=== PATIENT | male | born 1955 | race African-American/Black ===

== ENCOUNTER 2016-12-11 16:32 | Inpatient (IN) | payer SELFPAY ==
[2016-12-11 19:50] VITALS: BMI 26.0
--- NOTE | 2016-12-11 20:34 | HP ---
COWS - Scale Resting Pulse: 1= [place] 81-100 Sweatin=Flushed/Facial Moisture Restless Observation: 1= Difficult to Sit Still Pupil Size: 1= Pupils >than Normal Bone or Joint Aches: 1= Mild Discomfort Runny Nose/ Eye Tearin= Runny Nose/Eyes GI Upset > 30mins: 1= Stomach Cramp Tremor Observation: 1= Tremor [place], Not Seen Yawning Observation: 1= 1-2x During Session Anxiety or Irritability: 1=Feels Anxious/Irritable Goose Flesh Skin: 0=Smooth Skin COWS Score: 12 Admission ROS S - HPI Chief Complaint: WITHDRAWAL SYMPTOMS Allergies/Adverse Reactions: Allergies Allergy/AdvReac Type Severity Reaction Status Date / Time No Known Allergies Allergy Verified 12/11/16 20:32 History of Present Illness: 60 Y.O. MAN WITH AN EXTENSIVE HISTORY OF OPIATE AND COCAINE DEPENDENCE IS HERE SEEKING DETOX. HE WAS CLEAN FOR 7 YEARS BUT RELAPSED IN 2016. Exam Limitations: Physical Impairment (AMBULATES WITH A CANE AFTER A FALL. INSURED RIGHT KNEE.) - Ebola screening Have you traveled outside of the country in the last 21 days: No Have you had contact with anyone from an Ebola affected area: No Have you been sick,other than usual withdrawal symptoms: No Do you have a fever: No - Review of Systems Constitutional: Chills, Night Sweats, Changes in sleep, Weight Stable EENT: reports: Tearing, Nose Congestion Respiratory: reports: No Symptoms reported Cardiac: reports: No Symptoms Reported GI: reports: No Symptoms Reported : reports: No Symptoms Reported Musculoskeletal: reports: Joint Pain (RIGHT KNEE) Integumentary: reports: No Symptoms Reported Neuro: reports: Unsteady Gait Endocrine: reports: No Symptoms Reported Hematology: reports: No Symptoms Reported Psychiatric: reports: Mood/Affect Appropiate, Orientated x3 Other Systems: Reviewed and Negative Patient History - Patient Medical History Hx Anemia: No Hx Asthma: No Hx Chronic Obstructive Pulmonary Disease (COPD): No Hx Cancer: No Hx Cardiac Disorders: No Hx Congestive Heart Failure: No Hx Hypertension: No Hx Hypercholesterolemia: No Hx Pacemaker: No HX Cerebrovascular Accident: No Hx Seizures: No Hx Dementia: No Hx Diabetes: No Hx Gastrointestinal Disorders: No Hx Liver Disease: No Hx Genitourinary Disorders: No Hx Sexually Transmitted Disorders: No Hx Renal Disease (ESRD): No Hx Thyroid Disease: No Hx Human Immunodeficiency Virus (HIV): No Hx Hepatitis C: No Hx Depression: No Hx Suicide Attempt: No Hx Bipolar Disorder: No Hx Schizophrenia: No - Patient Surgical History Past Surgical History: Yes Hx Orthopedic Surgery: Yes (R KNEE ) Anesthesia Reaction: No - PPD History Previous Implant?: Yes Documented Results: Negative w/o proof PPD to be Administered?: Yes - Reproductive History Patient is a Female of Child Bearing Age (11 -55 yrs old): No - Smoking Cessation Smoking history: Current every day smoker Have you smoked in the past 12 months: Yes Aproximately how many cigarettes per day: 8 Hx Chewing Tobacco Use: No Initiated information on smoking cessation: Yes 'Breaking Loose' booklet given: 12/11/16 - Substance & Tx. History Hx Alcohol Use: No Hx Substance Use: Yes Substance Use Type: Heroin, Opiates Hx Substance Use Treatment: Yes (DETOX ) - Substances Abused Heroin Route: Inhalation Frequency: Daily Amount used: 6-10 BAGS Age of first use: 45 Date of Last Use: 12/11/16 Oxycontin Route: Oral Frequency: Daily Amount used: 80MG Age of first use: 50 Date of Last Use: 12/11/16 Family Disease History - Family Disease History Family Disease History: CA: Father (THROAT CA- ), Mother ( ) Admission Physical Exam S - Vital Signs Vital Signs: Vital Signs - 24 hr 12/11/16 19:48 Temperature 97.8 F Pulse Rate 92 H Respiratory 20 Rate Blood Pressure 106/80 - Physical General Appearance: Yes: Disheveled HEENTM: Yes: Rhinorrhea Respiratory: Yes: Chest Non-Tender, Lungs Clear, Normal Breath Sounds, No Respiratory Distress, No Accessory Muscle Use Neck: Yes: No masses,lesions,Nodules, Trachea in good position Breast: Yes: Breast Exam Deferred Cardiology: Yes: Regular Rhythm, Regular Rate Abdominal: Yes: Non Tender, Flat, Soft Genitourinary: Yes: Other (NO COMPLAINTS REPORTED) Back: Yes: Normal Inspection Musculoskeletal: Yes: Joint Stiffness (RIGHT KNEE) Extremities: Yes: Normal Inspection, Normal Range of Motion, Non-Tender Neurological: Yes: geodesist II-XII NML intact, Fully Oriented, Alert, Normal Mood/ Affect, Normal Response Integumentary: Yes: Normal Color, Dry, Warm Lymphatic: Yes: Within Normal Limits - Diagnostic (1) Opioid dependence with withdrawal Current Visit: Yes Status: Chronic (2) Nicotine dependence Current Visit: Yes Status: Chronic BHS Breath Alcohol Content Breath Alcohol Content: 0 Urine Drug Screen - Results Drug Screen Negative: No Urine Drug Screen Results: THC-Marijuana, MANPREET-Cocaine, OPI-Opiates, OXY- Oxycodone
[2016-12-11] MEDS ORDERED: LOPERAMIDE HCL 2 MG CAPSULE PO PRN (20:48)
[2016-12-11] MEDS ORDERED: IBUPROFEN 400 MG TABLET (FP) PO PRN (20:48)
[2016-12-11] MEDS ORDERED: guaiFENesin/D-METHORPHAN HB 10 ML UNIT-DOSE CUPS PO PRN (20:48)
[2016-12-11] MEDS ORDERED: NICOTINE POLACRILEX 2 MG GUM BC PRN (20:48)
[2016-12-11] MEDS ORDERED: MAGNESIUM HYDROX 2400MG/30ML ORAL SUSPENSION 30 ML CUP PO PRN (20:48)
[2016-12-11] MEDS ORDERED: MAG HYDROX/AL HYDROX/SIMETH 30 ML UNIT-DOSE CUP PO PRN (20:48)
[2016-12-11] MEDS ORDERED: MAGNESIUM CITRATE 300 ML BOTTLE PO PRN (20:48)
[2016-12-11] MEDS ORDERED: ACETAMINOPHEN 325 MG TABLET (FP) PO PRN (20:48)
[2016-12-11] MEDS ORDERED: P-EPHED 60MG/TRIPROLIDI 2.5MG TABLET PO PRN (20:48)
[2016-12-11] MEDS ORDERED: MENTHOL/PHENOL 1 EACH UD MM PRN (20:48)
[2016-12-11] MEDS ORDERED: METHADONE HCL 10 MG TABLET (FOR DETOX USE ONLY) PO ONE ×2 (20:48→23:00)
[2016-12-11] MEDS: diazePAM 5 MG TABLET PO PRN (22:57)
[2016-12-11] MEDS: THIAMINE HCL 100 MG TABLET (FP) PO SCH (22:58)
[2016-12-11] MEDS: diphenhydrAMINE HCL 50 MG CAPSULE PO PRN (22:58)
[2016-12-11 23:28] LABS: URINE APPEARANCE CLEAR; URINE BILIRUBIN NEGATIVE (NEGATIVE); URINE BLOOD NEGATIVE (NEGATIVE); URINE COLOR YELLOW; URINE GLUCOSE (UA) NEGATIVE (NEGATIVE); URINE KETONE TRACE (NEGATIVE); URINE LEUK ESTERASE NEGATIVE (NEGATIVE); URINE NITRITE NEGATIVE (NEGATIVE); URINE UROBILINOGEN 2.0 E.U/dl E.U./dl (0.2-1.0)
[2016-12-11 23:45] LABS: URINE PROTEIN 1+ (NEGATIVE)
[2016-12-11 23:48] LABS: CALCIUM OXALATE CRYSTALS FEW /hpf (NONE SEEN); URINE BACTERIA RARE /hpf (NONE SEEN); URINE MUCUS FEW; URINE RBC 4 /hpf (0-3); URINE WBC <1 /hpf (3-5)
--- NOTE | 2016-12-12 09:56 | CONSULT ---
[facility] Psychiatric Consult - Data Date of interview: 12/12/16 Admission source: [facility] Identifying data: Mr Ortiz is a 60 years old single Black male, father of 4 children, employed in maintenance by a [employer], domiciled seeking detox treatment for heroin and oxycontin Substance Abuse History: Reports that he started using heroin at age 45 and oxycontin at 60. He consumes 6-10 bags of heroin & 80 mg of oxycontin daily. He last used both on 12/11/16 Medical History: Significant for history of orthosurgery for repair of ligamen in right knee. smoked 8 cigarettes daily Psychiatric History: Denies history of previous psychiatric treatment Physical/Sexual Abuse/Trauma History: Denies history of emotional, physical or sexual abuse as well as Dv relationship Additional Comment: Reports a few arrests for disorderly conduct Mental Status Exam - Mental Status Exam Alert and Oriented to: Time, Place, Person Cognitive Function: Fair Patient Appearance: Well Groomed Mood: Depressed Patient Behavior: Cooperative Speech Pattern: Clear Voice Loudness: Normal Thought Process: Intact Thought Disorder: Not Present Hallucinations: Denies Suicidal Ideation: Denies Homicidal Ideation: Denies Insight/Judgement: Fair Sleep: Fair Appetite: Fair Muscle strength/Tone: Normal Gait/Station: Normal Psychiatric Findings - Problem List ([place] 1, 2,3) (1) Substance induced mood disorder Current Visit: Yes Status: Acute (2) Opioid dependence with withdrawal Current Visit: Yes Status: Chronic (3) Nicotine dependence Current Visit: Yes Status: Chronic - Initial Treatment Plan Initial Treatment Plan: Continue inpatient detoxification
[2016-12-12] MEDS ORDERED: METHADONE HCL 10 MG TABLET (FOR DETOX USE ONLY) PO ONE (10:00)
[2016-12-12 10:11] LABS: MCH 29.5 pg (25.7-33.7); MCHC 33.3 g/dl (32.0-35.9); MEAN CELL VOLUME 88.4 fl (80-96); MEAN PLT VOLUME 7.7 fl (7.5-11.1); PLATELET COUNT 230 K/MM3 (134-434); RDW 13.5 % (11.9-15.9); WHITE BLOOD COUNT 5.6 K/mm3 (4.0-10.0)
[2016-12-12] MEDS: diazePAM 5 MG TABLET PO PRN ×2 (10:15→22:10)
[2016-12-12] MEDS: PRENATAL VITAMINS W/ FOLIC ACID TABLET (FP) PO SCH (10:15)
[2016-12-12 11:26] LABS: ALBUMIN 3.6 g/dl (3.4-5.0); ALK PHOS 88 U/L (45-117); ANION GAP 9 (8-16); BILIRUBIN,TOTAL 0.4 mg/dL (0.2-1.0); CALCIUM 9.4 mg/dL (8.5-10.1); CO2 28 mmol/L (21-32); COCKROFT - GAULT 104.71; CREATININE 0.9 mg/dL (0.7-1.3); GLUCOSE,RANDOM 93 mg/dL (74-106); SGOT/AST 25 U/L (15-37); SGPT/ALT 43 U/L (12-78); TOT PROT 7.1 g/dl (6.4-8.2)
--- NOTE | 2016-12-12 11:47 | PN ---
S COWS - Scale Resting Pulse: 1= [place] 81-100 Sweatin=Flushed/Facial Moisture Restless Observation: 0= Sits Still Pupil Size: 0= Normal to Room Light Bone or Joint Aches: 2= Severe Diffuse Aches Runny Nose/ Eye Tearin= Nasal Congestion GI Upset > 30mins: 1= Stomach Cramp Tremor Observation of Outstretched Hands: 2= Slight Tremor Visible Yawning Observation: 1= 1-2x During Session Anxiety or Irritability: 2=Irritable/Anxious Goose Flesh Skin: 3=Piloerection COWS Score: 15 S Progress Note (SOAP) Subjective: Body Aches, Interrupted Sleep, Hot / Cold Sensations. Objective: PT. A & O X 3. NO ACUTE DISTRESS. PT. DENIES CHEST PAIN. 12/12/16 11:46 Vital Signs Temperature 97.3 F L 12/12/16 09:30 Pulse Rate 96 H 12/12/16 09:30 Respiratory Rate 18 12/12/16 09:30 Blood Pressure 137/80 12/12/16 09:30 O2 Sat by Pulse Oximetry (%) Laboratory Tests 12/11/16 12/12/16 12/12/16 Unknown 07:00 07:00 WBC 5.6 RBC 4.37 Hgb 12.9 Hct 38.6 MCV 88.4 MCHC 33.3 RDW 13.5 Plt Count 230 MPV 7.7 Sodium 140 Potassium 4.4 Chloride 103 Carbon Dioxide 28 Anion Gap 9 BUN 16 Creatinine 0.9 Creat Clearance w eGFR > 60 Random Glucose 93 Calcium 9.4 Total Bilirubin 0.4 AST 25 ALT 43 Alkaline Phosphatase 88 Total Protein 7.1 Albumin 3.6 Urine Color Yellow Urine Appearance Clear Urine pH 5.0 Urine Protein 1+ H Urine Glucose (UA) Negative Urine Ketones Trace H Urine Blood Negative Urine Nitrite Negative Urine Bilirubin Negative Urine Urobilinogen 2.0 e.u/dl Ur Leukocyte Esterase Negative Urine RBC 4 Urine WBC <1 Ur Epithelial Cells Rare Calcium Oxalate Crystal Few Urine Bacteria Rare Urine Mucus Few RPR Titer 12/12/16 07:00 WBC RBC Hgb Hct MCV MCHC RDW Plt Count MPV Sodium Potassium Chloride Carbon Dioxide Anion Gap BUN Creatinine Creat Clearance w eGFR Random Glucose Calcium Total Bilirubin AST ALT Alkaline Phosphatase Total Protein Albumin Urine Color Urine Appearance Urine pH Urine Protein Urine Glucose (UA) Urine Ketones Urine Blood Urine Nitrite Urine Bilirubin Urine Urobilinogen Ur Leukocyte Esterase Urine RBC Urine WBC Ur Epithelial Cells Calcium Oxalate Crystal Urine Bacteria Urine Mucus RPR Titer Nonreactive LABS NOTED. Assessment: 12/12/16 11:47 WITHDRAWAL SYMPTOMS. Plan: CONTINUE DETOX.
--- NOTE | 2016-12-12 11:57 | EKG ---
Test Reason : Blood Pressure : / mmHG Vent. Rate : 094 BPM Atrial Rate : 094 BPM P-R Int : 128 ms QRS Dur : 098 ms QT Int : 348 ms P-R-T Axes : 079 040 039 degrees QTc Int : 435 ms NORMAL SINUS RHYTHM RIGHT ATRIAL ENLARGEMENT INCOMPLETE RIGHT BUNDLE BRANCH BLOCK BORDERLINE ECG NO PREVIOUS ECGS AVAILABLE Confirmed by SANG COTA, EM ([id number] on 12/12/2016 11:56:56 AM Referred By: Confirmed By:EM DOMÍNGUEZ MD
[2016-12-12] MEDS: THIAMINE HCL 100 MG TABLET (FP) PO SCH (22:07)
[2016-12-12] MEDS: diphenhydrAMINE HCL 50 MG CAPSULE PO PRN (22:10)
[2016-12-13] MEDS: diazePAM 5 MG TABLET PO PRN ×4 (05:37→22:02)
[2016-12-13] MEDS ORDERED: METHADONE HCL 5 MG TABLET (FOR DETOX USE ONLY) PO ONE (10:00)
[2016-12-13] MEDS: PRENATAL VITAMINS W/ FOLIC ACID TABLET (FP) PO SCH (10:01)
--- NOTE | 2016-12-13 11:48 | PN ---
BHS COWS - Scale Resting Pulse: 1= [place] 81-100 Sweatin=Flushed/Facial Moisture Restless Observation: 0= Sits Still Pupil Size: 0= Normal to Room Light Bone or Joint Aches: 2= Severe Diffuse Aches Runny Nose/ Eye Tearin= Nasal Congestion GI Upset > 30mins: 1= Stomach Cramp Tremor Observation of Outstretched Hands: 2= Slight Tremor Visible Yawning Observation: 2= >3x During Session Anxiety or Irritability: 2=Irritable/Anxious Goose Flesh Skin: 0=Smooth Skin COWS Score: 13 BHS Progress Note (SOAP) Subjective: Chills, Sweating, Interrupted Sleep. Objective: PT. A & O X 3, OBSERVED AMBULATING ON UNIT WITH ASSISTANCE OF A CANE. NO ACUTE DISTRESS. PT. DENIES CHEST PAIN. 12/13/16 11:44 Vital Signs Temperature 97.6 F 12/13/16 10:01 Pulse Rate 97 H 12/13/16 10:01 Respiratory Rate 18 12/13/16 10:01 Blood Pressure 131/92 12/13/16 10:01 O2 Sat by Pulse Oximetry (%) Laboratory Tests 12/11/16 12/12/16 12/12/16 Unknown 07:00 07:00 WBC 5.6 RBC 4.37 Hgb 12.9 Hct 38.6 MCV 88.4 MCHC 33.3 RDW 13.5 Plt Count 230 MPV 7.7 Sodium 140 Potassium 4.4 Chloride 103 Carbon Dioxide 28 Anion Gap 9 BUN 16 Creatinine 0.9 Creat Clearance w eGFR > 60 Random Glucose 93 Calcium 9.4 Total Bilirubin 0.4 AST 25 ALT 43 Alkaline Phosphatase 88 Total Protein 7.1 Albumin 3.6 Urine Color Yellow Urine Appearance Clear Urine pH 5.0 Ur Specific [place] >= 1.030 H Urine Protein 1+ H Urine Glucose (UA) Negative Urine Ketones Trace H Urine Blood Negative Urine Nitrite Negative Urine Bilirubin Negative Urine Urobilinogen 2.0 e.u/dl Ur Leukocyte Esterase Negative Urine RBC 4 Urine WBC <1 Ur Epithelial Cells Rare Calcium Oxalate Crystal Few Urine Bacteria Rare Urine Mucus Few RPR Titer 12/12/16 07:00 WBC RBC Hgb Hct MCV MCHC RDW Plt Count MPV Sodium Potassium Chloride Carbon Dioxide Anion Gap BUN Creatinine Creat Clearance w eGFR Random Glucose Calcium Total Bilirubin AST ALT Alkaline Phosphatase Total Protein Albumin Urine Color Urine Appearance Urine pH Ur Specific [place] Urine Protein Urine Glucose (UA) Urine Ketones Urine Blood Urine Nitrite Urine Bilirubin Urine Urobilinogen Ur Leukocyte Esterase Urine RBC Urine WBC Ur Epithelial Cells Calcium Oxalate Crystal Urine Bacteria Urine Mucus RPR Titer Nonreactive LABS NOTED. Assessment: 12/13/16 11:47 WITHDRAWAL SYMPTOMS. Plan: CONTINUE DETOX. CONTINUE TO MONITOR BP.
[2016-12-13] MEDS: THIAMINE HCL 100 MG TABLET (FP) PO SCH (22:02)
[2016-12-13] MEDS: diphenhydrAMINE HCL 50 MG CAPSULE PO PRN (22:03)
[2016-12-14] MEDS: diphenhydrAMINE HCL 50 MG CAPSULE PO PRN ×2 (01:20→22:02)
[2016-12-14] MEDS: diazePAM 5 MG TABLET PO PRN ×3 (05:42→18:06)
[2016-12-14] MEDS ORDERED: METHADONE HCL 5 MG TABLET (FOR DETOX USE ONLY) PO ONE (10:00)
[2016-12-14] MEDS: PRENATAL VITAMINS W/ FOLIC ACID TABLET (FP) PO SCH (10:07)
--- NOTE | 2016-12-14 11:13 | PN ---
BHS Progress Note (SOAP) Subjective: Interrupted sleep, Body Aches, Tremors, Sweating. Objective: PT. A & OX 2 (DISORIENTED ABOUT ABOUT DAY / DATE). PT. OBSERVED AMBULATING ON UNIT WITH ASSISTANCE OF A CANE. NO Acute distress. 12/14/16 11:10 Vital Signs Temperature 96.4 F L 12/14/16 10:00 Pulse Rate 103 H 12/14/16 10:00 Respiratory Rate 18 12/14/16 10:00 Blood Pressure 129/84 12/14/16 10:00 O2 Sat by Pulse Oximetry (%) Laboratory Tests 12/11/16 12/12/16 12/12/16 Unknown 07:00 07:00 WBC 5.6 RBC 4.37 Hgb 12.9 Hct 38.6 MCV 88.4 MCHC 33.3 RDW 13.5 Plt Count 230 MPV 7.7 Sodium 140 Potassium 4.4 Chloride 103 Carbon Dioxide 28 Anion Gap 9 BUN 16 Creatinine 0.9 Creat Clearance w eGFR > 60 Random Glucose 93 Calcium 9.4 Total Bilirubin 0.4 AST 25 ALT 43 Alkaline Phosphatase 88 Total Protein 7.1 Albumin 3.6 Urine Color Yellow Urine Appearance Clear Urine pH 5.0 Ur Specific [place] >= 1.030 H Urine Protein 1+ H Urine Glucose (UA) Negative Urine Ketones Trace H Urine Blood Negative Urine Nitrite Negative Urine Bilirubin Negative Urine Urobilinogen 2.0 e.u/dl Ur Leukocyte Esterase Negative Urine RBC 4 Urine WBC <1 Ur Epithelial Cells Rare Calcium Oxalate Crystal Few Urine Bacteria Rare Urine Mucus Few RPR Titer 12/12/16 07:00 WBC RBC Hgb Hct MCV MCHC RDW Plt Count MPV Sodium Potassium Chloride Carbon Dioxide Anion Gap BUN Creatinine Creat Clearance w eGFR Random Glucose Calcium Total Bilirubin AST ALT Alkaline Phosphatase Total Protein Albumin Urine Color Urine Appearance Urine pH Ur Specific [place] Urine Protein Urine Glucose (UA) Urine Ketones Urine Blood Urine Nitrite Urine Bilirubin Urine Urobilinogen Ur Leukocyte Esterase Urine RBC Urine WBC Ur Epithelial Cells Calcium Oxalate Crystal Urine Bacteria Urine Mucus RPR Titer Nonreactive LABS NOTED. Assessment: 12/14/16 11:12 WITHDRAWAL SYMPTOMS. Plan: CONTINUE DETOX.
[2016-12-14] MEDS: THIAMINE HCL 100 MG TABLET (FP) PO SCH (22:02)
[2016-12-15] MEDS: hydrOXYzine PAMOATE 50 MG CAPSULE (FP) PO PRN ×3 (05:42→22:05)
[2016-12-15] MEDS ORDERED: METHADONE HCL 10 MG TABLET (FOR DETOX USE ONLY) PO ONE (10:00)
[2016-12-15] MEDS: PRENATAL VITAMINS W/ FOLIC ACID TABLET (FP) PO SCH (10:08)
--- NOTE | 2016-12-15 10:55 | PN ---
BHS Progress Note (SOAP) Subjective: Interrupted sleep, Chills, Tremors, Body Aches. Objective: PT. A & O X 3, OBSERVED AMBULATING ON UNIT WITH ASSISTANCE OF A CANE. NO ACUTE DISTRESS. PT. DENIES CHEST PAIN. 12/15/16 10:53 Vital Signs Temperature 96.4 F L 12/15/16 09:55 Pulse Rate 93 H 12/15/16 09:55 Respiratory Rate 20 12/15/16 09:55 Blood Pressure 122/86 12/15/16 09:55 O2 Sat by Pulse Oximetry (%) Laboratory Tests 12/11/16 12/12/16 12/12/16 Unknown 07:00 07:00 WBC 5.6 RBC 4.37 Hgb 12.9 Hct 38.6 MCV 88.4 MCHC 33.3 RDW 13.5 Plt Count 230 MPV 7.7 Sodium 140 Potassium 4.4 Chloride 103 Carbon Dioxide 28 Anion Gap 9 BUN 16 Creatinine 0.9 Creat Clearance w eGFR > 60 Random Glucose 93 Calcium 9.4 Total Bilirubin 0.4 AST 25 ALT 43 Alkaline Phosphatase 88 Total Protein 7.1 Albumin 3.6 Urine Color Yellow Urine Appearance Clear Urine pH 5.0 Ur Specific [place] >= 1.030 H Urine Protein 1+ H Urine Glucose (UA) Negative Urine Ketones Trace H Urine Blood Negative Urine Nitrite Negative Urine Bilirubin Negative Urine Urobilinogen 2.0 e.u/dl Ur Leukocyte Esterase Negative Urine RBC 4 Urine WBC <1 Ur Epithelial Cells Rare Calcium Oxalate Crystal Few Urine Bacteria Rare Urine Mucus Few RPR Titer 12/12/16 07:00 WBC RBC Hgb Hct MCV MCHC RDW Plt Count MPV Sodium Potassium Chloride Carbon Dioxide Anion Gap BUN Creatinine Creat Clearance w eGFR Random Glucose Calcium Total Bilirubin AST ALT Alkaline Phosphatase Total Protein Albumin Urine Color Urine Appearance Urine pH Ur Specific [place] Urine Protein Urine Glucose (UA) Urine Ketones Urine Blood Urine Nitrite Urine Bilirubin Urine Urobilinogen Ur Leukocyte Esterase Urine RBC Urine WBC Ur Epithelial Cells Calcium Oxalate Crystal Urine Bacteria Urine Mucus RPR Titer Nonreactive LABS NOTED. Assessment: 12/15/16 10:54 WITHDRAWAL SYMPTOMS. Plan: CONTINUE DETOX.
[2016-12-15] MEDS: THIAMINE HCL 100 MG TABLET (FP) PO SCH (22:05)
[2016-12-15] MEDS: diphenhydrAMINE HCL 50 MG CAPSULE PO PRN (22:05)
[2016-12-16] MEDS ORDERED: METHADONE HCL 5 MG TABLET (FOR DETOX USE ONLY) PO ONE (06:00)
[2016-12-16 06:22] VITALS: BP 128/78; PULSE 89; TEMP 97.1
--- NOTE | 2016-12-16 13:30 | DS ---
[facility] Detox Discharge Summary Admission Date: 12/11/16 Discharge Date: 12/16/16 - History Present History: Opioid Dependence Additional Comments: ADVISED PATIENT TO FOLLOW-UP WITH HEAD CHEF AFTER DISCHARGE FROM DETOX FOR GENERAL MEDICAL ASSESSMENT. - Physical Exam Results Vital Signs: Vital Signs Temperature 97.1 F L 12/16/16 06:21 Pulse Rate 89 12/16/16 06:21 Respiratory Rate 18 12/16/16 06:21 Blood Pressure 128/78 12/16/16 06:21 O2 Sat by Pulse Oximetry (%) Pertinent Admission Physical Exam Findings: WITHDRAWAL SYMPTOMS. Laboratory Tests 12/11/16 12/12/16 12/12/16 Unknown 07:00 07:00 WBC 5.6 RBC 4.37 Hgb 12.9 Hct 38.6 MCV 88.4 MCHC 33.3 RDW 13.5 Plt Count 230 MPV 7.7 Sodium 140 Potassium 4.4 Chloride 103 Carbon Dioxide 28 Anion Gap 9 BUN 16 Creatinine 0.9 Creat Clearance w eGFR > 60 Random Glucose 93 Calcium 9.4 Total Bilirubin 0.4 AST 25 ALT 43 Alkaline Phosphatase 88 Total Protein 7.1 Albumin 3.6 Urine Color Yellow Urine Appearance Clear Urine pH 5.0 Ur Specific [place] >= 1.030 H Urine Protein 1+ H Urine Glucose (UA) Negative Urine Ketones Trace H Urine Blood Negative Urine Nitrite Negative Urine Bilirubin Negative Urine Urobilinogen 2.0 e.u/dl Ur Leukocyte Esterase Negative Urine RBC 4 Urine WBC <1 Ur Epithelial Cells Rare Calcium Oxalate Crystal Few Urine Bacteria Rare Urine Mucus Few RPR Titer 12/12/16 07:00 WBC RBC Hgb Hct MCV MCHC RDW Plt Count MPV Sodium Potassium Chloride Carbon Dioxide Anion Gap BUN Creatinine Creat Clearance w eGFR Random Glucose Calcium Total Bilirubin AST ALT Alkaline Phosphatase Total Protein Albumin Urine Color Urine Appearance Urine pH Ur Specific [place] Urine Protein Urine Glucose (UA) Urine Ketones Urine Blood Urine Nitrite Urine Bilirubin Urine Urobilinogen Ur Leukocyte Esterase Urine RBC Urine WBC Ur Epithelial Cells Calcium Oxalate Crystal Urine Bacteria Urine Mucus RPR Titer Nonreactive LABS NOTED. - Treatment Hospital Course: Detox Protocol Followed, Detoxed Safely, Responded well, Discharged Condition Good Patient has Accepted a Rehab Referral to: PATIENT ELECTING TO GO HOME. 12-STEP/ AA OUTPATIENT PROGRAMS RECOMMENDED. - Medication Discharge Medications: Ambulatory Orders NK [No Known Home Medication] 12/11/16 - Diagnosis (1) Substance induced mood disorder Status: Acute (2) Nicotine dependence Status: Chronic Qualifiers: Nicotine product type: cigarettes Substance use status: uncomplicated Qualified Code(s): F17.210 - Nicotine dependence, cigarettes, uncomplicated (3) Opioid dependence with withdrawal Status: Acute - AMA Did Patient Leave Against Medical Advice: No
== END 2016-12-16 09:00 | disposition home or self-care (01) | DRG 773 ==
LOC: YASAS 16:32 → Y3N 21:15
PROVIDERS: ADMIT Internal Medicine; ATTEND Internal Medicine
PROC: HZ2ZZZZ Detoxification Services for Substance Abuse Treatment (ICD-10-PCS; principal; 2016-12-11)
DX: F11.23 Opioid dependence with withdrawal (principal); F17.210 Nicotine dependence, cigarettes, uncomplicated; F19.24 Other psychoactive substance dependence with psychoactive substance-induced mood disorder
CPT/HCPCS: 36415; 80053; 81003; 81015; 85027; 86593; 93005; 93010